=== PATIENT | female | born 1995 | race Two or more races ===

== ENCOUNTER 2018-10-05 01:00 | Outpatient (CLI) | payer MEDICAID ==
[~2018-10-05] VITALS: Ht 154.9 cm; Wt 79.9 kg
[2018-10-05 01:13] VITALS: Ht 154.9 cm; Wt 79.9 kg
[2018-10-05] MEDS ORDERED: PREN1TAB91 PO (01:16)
[2018-10-05] MEDS ORDERED: CALC-143 PO (01:16)
[2018-10-05] MEDS ORDERED: FERR256T PO (01:16)
--- NOTE | 2018-10-05 04:13 | TRIAGE ---
OB Triage Datetime Report Generated by CPN: 10/05/2018 04:12 Datetime: 10/05/2018 03:48 Stage of : OB Triage Labor Evaluation Frequency: X0 Monitor Mode: External Duration (sec)2399: X0 Pattern: Normal: <= 5 Contractions in 10 Minutes Resting Tone [place]: Relaxed Heart Rate FHR Baseline Rate: 135 Monitor Mode: External US Variability: Moderate 6-25 bpm Accelerations: 15X15 Decelerations: None Category: Category I Datetime: 10/05/2018 03:00 Stage of : OB Triage Labor Evaluation Frequency: X1 Monitor Mode: External Duration (sec)2399: 60 Quality: Mild Pattern: Normal: <= 5 Contractions in 10 Minutes Resting Tone [place]: Relaxed Heart Rate FHR Baseline Rate: 125 Monitor Mode: External US Variability: Moderate 6-25 bpm Accelerations: 15X15 Decelerations: None Category: Category I Datetime: 10/05/2018 02:00 Stage of : OB Triage Labor Evaluation Frequency: X4 Monitor Mode: External Duration (sec)2399: 40-80 Quality: Mild Pattern: Normal: <= 5 Contractions in 10 Minutes Resting Tone [place]: Relaxed Heart Rate FHR Baseline Rate: 135 Monitor Mode: External US Variability: Moderate 6-25 bpm Accelerations: 15X15 Decelerations: None Category: Category I Datetime: 10/05/2018 01:09 Time of Arrival: 10/05/2018 00:48 EGA: 36.1 Chief Complaint: RUNNY NOSE, HEADACHEAND FEVER SINCE 10/02/18, COUGH STARTED 3 HRS AGO Movement: Present Rupture of Membranes: Denies Vaginal Discharge: Denies Time Provider Notified: 10/05/2018 01:27 Provider Notified: HIMANSHU Initial Plan: EFM, ASSESSMENT, CALL MD FOR ORDERS, NST/BPP, CONT. SAO2 Datetime: 10/05/2018 01:00 Assessment Type: Triage Maternal Assessment Level of Consciousness: Fully Conscious DTR's/Clonus: DTRs 2+; No Clonus Headache: Generalized Blurred Vision: No Respiratory Effort: Unlabored; Regular Rhythm; Equal Expansion Breath Sounds, Left: Clear and Equal Breath Sounds, Right: Clear and Equal Nausea/Vomiting: Denies RUQ Epigastric Pain: Denies Lower Extremities Edema: Bilateral Lower Extremities (Annotations: ANKLES SWOLLEN) Upper Extremities Edema: None (Annotations: OBESE PT.) Facial Edema: None Fall Risk Assessment History of Falling: (0) No Secondary Diagnosis: (0) No Ambulatory Aid: (0) Bedrest/Nurse Assist IV Therapy: (0) No Gait: (0) Normal/Bedrest/Immobile Mental Status: (0) Oriented to Own Ability Fall Score: 0 Fall Risk Score Definition: No Risk: No action required
--- NOTE | 2018-10-05 11:48 | PN ---
Triage Information Date/Time October 05, 2018 Reason for visit: Cough and pain in the lower abdomen Weeks of Gestation 36 weeks and 1 day /Para 2 para 1 Diabetes: none Hypertention: none Additional information 23-year-old G2, P1 with IUP at 36 weeks and 1 day presents with complaint of cough and pain in the lower abdomen when she coughs since yesterday. She denies any fever or chills. She denies any vaginal bleeding decreased movement contractions. Denies any sick contact. Denies any shortness of breath or chest pain. Objective Heart Rate: 130's Heart Rate Comments Cat 1 Contractions: None Exam GA: General appearance: Alert and oriented x4. appears to be mild distress Abdomen: Soft, gravid, fundal height consider gestational age, no tenderness, no rebound tenderness, no guarding, no rigidity Lungs: Clear to auscultation bilaterally CV: RRR NST: Appropriate for gestational age and reassuring BPP: 8/8 Oxygen saturation on room air: 97-90 percentile Results/Medications Imaging Results PROCEDURE: Biophysical profile. CLINICAL INDICATION: Pelvic pain. TECHNIQUE: Multiple sonographic images of the pelvis were obtained with transabdominal technique. COMPARISON: No prior studies are available for comparison. FINDINGS: There is a single living intrauterine gestation with the fetus in a vertex position. The placenta is posterior in location, grade II. heart tones of 141 beats per minute are identified. There is normal amniotic fluid volume with an SHAILESH of 12.1 cm. breathing movements = 2 Gross body movements = 2 tone = 2 Qualitative AFV = 2 IMPRESSION: Biophysical profile 8 out of 8. Disposition: Discharge Assessment/Plan IUP at 36 weeks and 1 day Cough, reports when she coughs she feels discomfort and pain in lower abdomen. Cannot rule out URI Patient is afebrile Oxygen saturation normal in room air testing reassuring No evidence of labor Patient will be discharged to emergency room for further evaluation Discussed the patient if discharge from the hospital follow-up within 48 hours with primary OB office or sooner as needed Patient verbalized understanding. All questions answered to patient with satisfaction MARGOTH DOWNS MD October 05, 2018 11:48
== END 2018-10-05 04:00 | disposition home or self-care (01) ==
LOC: OBT 01:00 → L-D 01:00 → OBT 04:00
PROVIDERS: ATTEND Obstetrics & Gynecology Obstetrics
DX: O26.893 Other specified pregnancy related conditions, third trimester (principal); R05 Cough; R10.30 Lower abdominal pain, unspecified; Z3A.36 36 weeks gestation of pregnancy
CPT/HCPCS: 76818; G0463